=== PATIENT | male | born 1995 | race Caucasian/White ===

== ENCOUNTER → 2016-12-04 | Outpatient (CLI) | payer BC, OTHER ==
--- NOTE | 2016-12-04 16:04 | DIAGNOSTIC IMAGING REPORT ---
RENAL ULTRASOUND CLINICAL HISTORY: Nephrolithiasis. COMPARISON STUDY: KUB November 30, 2015. TECHNIQUE: Sonography of the kidneys and the urinary bladder was performed. FINDINGS: The right kidney measures 9.9 x 4.2 x 4.6 cm and the left measures 11 x 6.2 x 6 cm. There is no hydronephrosis. No renal calculi or masses are identified by sonography. There is apparent debris within the bladder. Both ureteral jets were identified. IMPRESSION: 1. Unremarkable sonographic appearance of the kidneys. No hydronephrosis. No calculi identified by sonography. 2. Possible debris within the bladder. Electronically signed by: Marcelo Spencer M.D. 12/04/2016 4:03 PM Dictated Date/Time: 12/04/2016 3:59 PM
--- NOTE | 2016-12-04 16:45 | DIAGNOSTIC IMAGING REPORT ---
KUB CLINICAL HISTORY: Nephrolithiasis. FINDINGS: 2 AP supine abdominal radiographs are compared to study dated 11/30/2015 and correlated with abdominal CT dated 06/09/2015. There is a nonobstructed abdominal bowel gas pattern. There is no clear radiographic evidence of nephrolithiasis. Pelvic basin calcifications are similar to previous and favor phleboliths. The bony structures appear intact. IMPRESSION: There is no clear radiographic evidence of nephrolithiasis. Electronically signed by: Michael Gibson M.D. 12/04/2016 4:44 PM Dictated Date/Time: 12/04/2016 4:42 PM
== END | disposition home or self-care (01) ==
LOC: C.ULTR 15:32
PROVIDERS: ATTEND Urology
DX: N20.0 Calculus of kidney (principal)

== ENCOUNTER 2017-07-08 22:39 | Inpatient (IN) | payer OTHER ==
[~2017-07-08] VITALS: Ht 177.8 cm; Wt 62.1 kg
[2017-07-08] MEDS ORDERED: ONDANSETRON INJ 2 MG/ML 2 ML VIAL IV STA (23:12)
[2017-07-08] MEDS ORDERED: LIDOCAINE HCL 2% VISC SOLN 20 ML UDC PO STA (23:12)
[2017-07-08] MEDS ORDERED: SODIUM CHLORIDE 0.9% 1000ML 1,000 ML IV STA (23:12)
[2017-07-08] MEDS ORDERED: ALUMINUM/MAGNESIUM SUSP 30 ML UDC PO STA (23:12)
[2017-07-08] MEDS ORDERED: ONDANSETRON HOME PACK 4MG OD TAB PO ONE (23:15)
[2017-07-08 23:28] LABS: BASO % 0.6 %; BASO ABS # 0.04 K/uL (0-0.2); EOS % 0.3 %; EOS ABS # 0.02 K/uL (0-0.5); HEMATOCRIT 49.2 % (42-52); HEMOGLOBIN 18.4 g/dL (14.0-18.0); IG# 0.02 K/uL (0.00-0.02); LYMPH % 24.5 %; LYMPH ABS # 1.67 K/uL (1.2-3.4); MEAN CORPUSCULAR HGB CONC 37.4 g/dl (32-36); MEAN PLATELET VOLUME 9.1 fL (7.4-10.4); MONO % 10.8 %; MONO ABS # 0.74 K/uL (0.11-0.59); NEUT % 63.5 %; NEUT ABS # 4.34 K/uL (1.4-6.5); PLATELET COUNT 251 K/uL (130-400); RED CELL DISTRIBUTION WIDTH CV 12.9 % (11.5-14.5); RED CELL DISTRIBUTION WIDTH SD 38.7 fL (36.4-46.3); WHITE BLOOD COUNT 6.83 K/uL (4.8-10.8)
[2017-07-08 23:51] LABS: ALBUMIN 4.8 gm/dl (3.4-5.0); CALCIUM 9.2 mg/dl (8.5-10.1); CREATININE 1.43 mg/dl (0.60-1.40); POTASSIUM 3.8 mmol/L (3.5-5.1)
[2017-07-08 23:53] LABS: TOTAL PROTEIN 9.2 gm/dl (6.4-8.2)
[2017-07-08] MEDS ORDERED: ONDA4TAB46 PO (23:55)
[2017-07-08] MEDS ORDERED: MULT-506 PO (23:56)
[2017-07-09] VITALS (29 sets, daily range): BP systolic 109–122; BP diastolic 57–78; PULSE 63–84; TEMP 36.8–37.2; O2SAT 96–100; BMI 19.4; BMI 20.1
[2017-07-09] MEDS ORDERED: INSULIN IV INFUSION PROTOCOL STA ×2 (00:11→01:41)
[2017-07-09] MEDS ORDERED: DKA GOAL RANGE 150-250 mg/dl 1 EA ONE ×2 (00:15→01:45)
[2017-07-09] MEDS ORDERED: MODERATE STRESS LEVEL ONE (00:15)
[2017-07-09 00:29] LABS: PHOSPHORUS 2.8 mg/dl (2.5-4.9)
[2017-07-09] MEDS ORDERED: INSULIN REGULAR 250 UNITS in SODIUM CHLORIDE 0.9% 250ML 250 ML IV SCH (00:45)
[2017-07-09] MEDS ORDERED: NovoLIN R BOLUS FROM BAG IV ONE (00:45)
[2017-07-09] MEDS ORDERED: SODIUM CHLORIDE 0.9% 1000ML 1,000 ML IV STA ×2 (00:59)
[2017-07-09] MEDS ORDERED: PENDING NSS+20mEq KCL IVF SCH (01:45)
[2017-07-09] MEDS ORDERED: SEVERE STRESS LEVEL ONE (01:45)
[2017-07-09] MEDS ORDERED: MAGNESIUM HYDROXIDE SUSP 30 ML UDC PO PRN (02:15)
[2017-07-09] MEDS ORDERED: ONDANSETRON INJ 2 MG/ML 2 ML VIAL IV PRN (02:15)
[2017-07-09] MEDS ORDERED: ALUMINUM/MAGNESIUM/SIMETH (MAALOX MAX) 30 ML UDC PO PRN (02:15)
[2017-07-09] MEDS ORDERED: ICU PROTOCOL FOR HYPERGLYCEMIA PRN (02:15)
--- NOTE | 2017-07-09 02:24 | History and Physical ---
History & Physical Date & Time of Service: Jul 09, 2017 at 02:12 Chief Complaint: Vomiting, Nausea, Unable To Eat, Dry Mouth Primary Care Physician: [facility] History of Present Illness Source: patient 22 y/o M who denies a significant medical history. He presents with nausea, vomiting and abdominal pain x 2 days. The pt states that he has had a dry mouth , polyuria and polydipsia for over one month. He denies a fever, diarrhea, dysuria or rigors. Initial labs are consistent with new onset DM and DKA. Past Medical/Surgical History Medical Problems: (1) DKA (diabetic ketoacidoses) Family History No history of DM in immediate family - one cousin with DM diagnosed at age 21 Social History Does not smoke - social drinking - engineering student at [employer] Smoking Status: Never Smoker Allergies Coded Allergies: No Known Allergies (Unverified , 07/08/17) Home Medications Scheduled Multivitamin (Multivitamin), 1 TAB PO DAILY Scheduled PRN Ondansetron Hcl (Zofran), 4 MG PO DIRECTED PRN for Nausea Review of Systems Constitutional: No fever, No chills, No sweats Eyes: No worsening of vision ENT: + problem reported (Dry mouth), No hearing loss, No unusual epistaxis, No nasal symptoms Respiratory: No cough, No sputum, No wheezing Cardiovascular: No chest pain, No orthopnea, No PND Abdomen: + pain, + nausea, + vomiting Musculoskeletal: No joint pain Genitourinary - Male: + urinary frequency, No hematuria, No dysuria Neurologic: No memory loss, No paralysis, No weakness Psychiatric: No depression symptoms Endocrine: + excessive thirst, No fatigue Hematologic / Lymphatic: No abnormal bleeding/bruising Integumentary: No rash Allergic / Immunologic: No environmental allergies Physical Exam Vital Signs Date Time Temp Pulse Resp B/P (MAP) Pulse Ox O2 Delivery O2 Flow Rate FiO2 07/09/17 01:39 76 16 125/73 100 Room Air 07/09/17 00:24 82 07/09/17 00:08 85 18 132/75 99 Room Air 07/08/17 22:52 36.4 116 20 126/92 99 Room Air General Appearance: WD/WN, no apparent distress, + thin Head: normocephalic ENT: normal ENT inspection, pharynx normal Neck: supple, no JVD Respiratory/Chest: chest non-tender, lungs clear Cardiovascular: regular rate, rhythm, no edema, no gallop Abdomen/GI: normal bowel sounds, non tender, soft Back: normal inspection, no CVA tenderness Extremities/Musculoskelatal: normal inspection, no calf tenderness, normal capillary refill Neurologic/Psych: auto tech II-XII nml as tested, no motor/sensory deficits, alert, oriented x 3 Skin: normal color Diagnostics Laboratory Results Results Past 24 Hours Test 07/08/17 23:15 07/09/17 00:10 07/09/17 00:25 07/09/17 00:47 Range/Units White Blood Count 6.83 4.8-10.8 K/uL Red Blood Count 5.93 4.7-6.1 M/uL Hemoglobin 18.4 14.0-18.0 g/dL Hematocrit 49.2 42-52 % Mean Corpuscular Volume 83.0 80-100 fL Mean Corpuscular Hemoglobin 31.0 25-34 pg Mean Corpuscular Hemoglobin Concent 37.4 32-36 g/dl Platelet Count 251 130-400 K/uL Mean Platelet Volume 9.1 7.4-10.4 fL Neutrophils (%) (Auto) 63.5 % Lymphocytes (%) (Auto) 24.5 % Monocytes (%) (Auto) 10.8 % Eosinophils (%) (Auto) 0.3 % Basophils (%) (Auto) 0.6 % Neutrophils # (Auto) 4.34 1.4-6.5 K/uL Lymphocytes # (Auto) 1.67 1.2-3.4 K/uL Monocytes # (Auto) 0.74 0.11-0.59 K/uL Eosinophils # (Auto) 0.02 0-0.5 K/uL Basophils # (Auto) 0.04 0-0.2 K/uL RDW Standard Deviation 38.7 36.4-46.3 fL RDW Coefficient of Variation 12.9 11.5-14.5 % Immature Granulocyte % (Auto) 0.3 % Immature Granulocyte # (Auto) 0.02 0.00-0.02 K/uL Sodium Level 131 136-145 mmol/L Potassium Level 3.8 3.5-5.1 mmol/L Chloride Level 101 98-107 mmol/L Carbon Dioxide Level 10 21-32 mmol/L Anion Gap 20.0 3-11 mmol/L Blood Urea Nitrogen 12 7-18 mg/dl Creatinine 1.43 0.60-1.40 mg/dl Est Creatinine Clear Calc Drug Dose 70.0 ml/min Estimated GFR () 80.6 Estimated GFR (Non- 69.5 BUN/Creatinine Ratio 8.7 10-20 Random Glucose 331 70-99 mg/dl Calcium Level 9.2 8.5-10.1 mg/dl Phosphorus Level 2.8 2.5-4.9 mg/dl Magnesium Level 2.3 1.8-2.4 mg/dl Total Bilirubin 0.9 0.2-1 mg/dl Direct Bilirubin 0.2 0-0.2 mg/dl Aspartate Amino Transf (AST/SGOT) 14 15-37 U/L Alanine Aminotransferase (ALT/SGPT) 24 12-78 U/L Alkaline Phosphatase 108 45-117 U/L Total Protein 9.2 6.4-8.2 gm/dl Albumin 4.8 3.4-5.0 gm/dl Lipase 62 73-393 U/L Beta-Hydroxybutyric Acid 97.58 0.2-2.81 mg/dL Venous Blood pH 7.16 7.36-7.41 Venous Blood Partial Pressure CO2 27 38.0-50.0 mmHg Venous Blood Partial Pressure O2 66 mmHg Venous Blood HCO3 9 mmol/L Venous Blood Oxygen Saturation 90.7 % Venous Blood Base Excess -17.8 mEq/L Bedside Glucose 316 70-99 mg/dl Bedside Lactic Acid Venous 1.22 0.90-1.70 mmol/L Test 07/09/17 01:58 Range/Units Bedside Glucose 246 70-99 mg/dl Impression Assessment and Plan 22 y/o M who denies a significant medical history. He presents with nausea, vomiting and abdominal pain x 2 days. The pt states that he has had a dry mouth , polyuria and polydipsia for over one month. He reports weight loss of 12 pounds. He denies a fever, diarrhea, dysuria or rigors. Initial labs are consistent with new onset DM and DKA. The pt is assigned to the ICU on an insulin drip which will be maintained until his gap closes. Aggressive IVF provided. Electrolytes will be trended and repleted accordingly. He will require diabetic teaching and a home insulin regimen prior to DC. Full code - Heparin prophylaxis Total time for this admit including review of labs, meds, imaging, records - discussion with pt, family and ER attending - including critical care time 35 min Resuscitation Status VTE Prophylaxis Will order VTE Prophylaxis: Yes
--- NOTE | 2017-07-09 02:30 | EMERGENCY ROOM VISIT NOTE ---
History First contact with patient: 23:08 Chief Complaint: VOMITING Stated Complaint: VOMITING, NAUSEA, UNABLE TO EAT, DRY MOUTH History of Present Illness The patient is a 22 year old male who presents to the Emergency Room with complaints of nausea, vomiting, for the past few days. Patient states for the past few weeks he has had polydipsia and polyuria. Patient denies chest pain, dyspnea, fever, chills, diarrhea, back pain, lower abdominal pain, dysuria, cold symptoms. No sick contacts. Review of Systems An 10 system review of systems was completed with positives and pertinent negatives listed in the HPI. Past Medical/Surgical History Asthma, Acne Social History Smoking Status: Never Smoker Smokeless Tobacco Use: No Alcohol Use: none Drug Use: none Marital Status: single Occupation Status: [employer] student Current/Historical Medications Scheduled Multivitamin (Multivitamin), 1 TAB PO DAILY Scheduled PRN Ondansetron Hcl (Zofran), 4 MG PO DIRECTED PRN for Nausea Physical Exam Vital Signs Date Time Temp Pulse Resp B/P (MAP) Pulse Ox O2 Delivery O2 Flow Rate FiO2 07/09/17 01:39 76 16 125/73 100 Room Air 07/09/17 00:24 82 07/09/17 00:08 85 18 132/75 99 Room Air 07/08/17 22:52 36.4 116 20 126/92 99 Room Air Physical Exam VITALS: Vitals are noted on the nurse's note and reviewed by myself. Vital signs stable. GENERAL: Pleasant male mildly dehydrated., in no acute distress, nondiaphoretic , well-developed well-nourished. SKIN: The skin was without rashes, erythema, edema, or bruising. There is no tenting of the skin. Capillary reflex less than 2 seconds. HEAD: Normocephalic atraumatic. EARS: External auditory canals clear, tympanic membranes pearly briseno without erythema or effusion bilaterally. EYES: Pupils equal round and reactive to light and accommodation. Conjunctivae without injection, sclerae without icterus. Extraocular movements intact. NOSE: Patent, turbinates without inflammation or discharge. No sinus tenderness. MOUTH: Mucous membranes mildly dry. pharynx without erythema or exudate. Uvula midline. Airway patent. Tongue does not deviate. NECK: Supple without nuchal rigidity. No lymphadenopathy. No thyromegaly. Cervical spine is nontender. No JVD. HEART: Regular rate and rhythm without murmurs gallops or rubs. LUNGS: Clear to auscultation bilaterally without wheezes, rales or rhonchi. No retractions or accessory muscle use. ABDOMEN: Positive bowel sounds x 4. Normal tympanic percussion. Soft, nontender, without masses or organomegaly. Irving sign negative. No guarding or rebound tenderness. No CVA tenderness MUSCULOSKELETAL: No muscle atrophy, erythema, or edema noted. NEURO: Patient was alert and oriented to person place and time. Normal sensation to light and sharp touch. No focal neurological deficits. Medical Decision & Procedures Laboratory Results 07/08/17 23:15 Red Blood Count 5.93, Mean Corpuscular Volume 83.0, Mean Corpuscular Hemoglobin 31.0, Mean Corpuscular Hemoglobin Concent 37.4, Mean Platelet Volume 9.1, Neutrophils (%) (Auto) 63.5, Lymphocytes (%) (Auto) 24.5, Monocytes (%) (Auto) 10.8, Eosinophils (%) (Auto) 0.3, Basophils (%) (Auto) 0.6, Neutrophils # (Auto ) 4.34, Lymphocytes # (Auto) 1.67, Monocytes # (Auto) 0.74, Eosinophils # (Auto ) 0.02, Basophils # (Auto) 0.04 07/08/17 23:15 Test 07/08/17 23:15 07/09/17 00:10 07/09/17 00:25 07/09/17 00:47 White Blood Count 6.83 K/uL (4.8-10.8) Red Blood Count 5.93 M/uL (4.7-6.1) Hemoglobin 18.4 g/dL (14.0-18.0) Hematocrit 49.2 % (42-52) Mean Corpuscular Volume 83.0 fL (80-100) Mean Corpuscular Hemoglobin 31.0 pg (25-34) Mean Corpuscular Hemoglobin Concent 37.4 g/dl (32-36) Platelet Count 251 K/uL (130-400) Mean Platelet Volume 9.1 fL (7.4-10.4) Neutrophils (%) (Auto) 63.5 % Lymphocytes (%) (Auto) 24.5 % Monocytes (%) (Auto) 10.8 % Eosinophils (%) (Auto) 0.3 % Basophils (%) (Auto) 0.6 % Neutrophils # (Auto) 4.34 K/uL (1.4-6.5) Lymphocytes # (Auto) 1.67 K/uL (1.2-3.4) Monocytes # (Auto) 0.74 K/uL (0.11-0.59) Eosinophils # (Auto) 0.02 K/uL (0-0.5) Basophils # (Auto) 0.04 K/uL (0-0.2) RDW Standard Deviation 38.7 fL (36.4-46.3) RDW Coefficient of Variation 12.9 % (11.5-14.5) Immature Granulocyte % (Auto) 0.3 % Immature Granulocyte # (Auto) 0.02 K/uL (0.00-0.02) Anion Gap 20.0 mmol/L (3-11) Est Creatinine Clear Calc Drug Dose 70.0 ml/min Estimated GFR () 80.6 Estimated GFR (Non- 69.5 BUN/Creatinine Ratio 8.7 (10-20) Calcium Level 9.2 mg/dl (8.5-10.1) Phosphorus Level 2.8 mg/dl (2.5-4.9) Magnesium Level 2.3 mg/dl (1.8-2.4) Total Bilirubin 0.9 mg/dl (0.2-1) Direct Bilirubin 0.2 mg/dl (0-0.2) Aspartate Amino Transf (AST/SGOT) 14 U/L (15-37) Alanine Aminotransferase (ALT/SGPT) 24 U/L (12-78) Alkaline Phosphatase 108 U/L (45-117) Total Protein 9.2 gm/dl (6.4-8.2) Albumin 4.8 gm/dl (3.4-5.0) Lipase 62 U/L (73-393) Beta-Hydroxybutyric Acid 97.58 mg/dL (0.2-2.81) Venous Blood pH 7.16 (7.36-7.41) Venous Blood Partial Pressure CO2 27 mmHg (38.0-50.0) Venous Blood Partial Pressure O2 66 mmHg Venous Blood HCO3 9 mmol/L Venous Blood Oxygen Saturation 90.7 % Venous Blood Base Excess -17.8 mEq/L Bedside Glucose 316 mg/dl (70-99) Bedside Lactic Acid Venous 1.22 mmol/L (0.90-1.70) Medications Administered Medications (Trade) Dose Ordered Sig/Renetta Route Start Time Stop Time Status Last Admin Dose Admin Lidocaine HCl (Viscous Lidocaine 2% Soln) 10 ml NOW STAT PO 07/08/17 23:12 07/08/17 23:14 DC 07/08/17 23:22 10 ML Al Hydroxide/Mg Hydroxide (Maalox Susp) 30 ml NOW STAT PO 07/08/17 23:12 07/08/17 23:15 DC 07/08/17 23:22 30 ML Ondansetron HCl (Zofran Inj) 4 mg NOW STAT IV 07/08/17 23:12 07/08/17 23:15 DC 07/08/17 23:23 4 MG Ondansetron HCl (ZOFRAN ODT 4MG Home Pack) 1 homepack UD ONCE PO 07/08/17 23:15 07/08/17 23:16 DC 07/08/17 23:22 1 HOMEPACK Sodium Chloride 1,000 ml @ 999 mls/hr Q1H1M STAT IV 07/08/17 23:12 07/09/17 00:12 DC 07/08/17 23:23 999 MLS/HR Sodium Chloride 1,000 ml @ 999 mls/hr Q1H1M STAT IV 07/09/17 00:00 07/09/17 01:00 DC 07/09/17 00:08 999 MLS/HR Insulin Human Regular (Insulin IV Infusion Protocol) 1 ea NOW STAT N/A 07/09/17 00:11 07/09/17 00:18 DC 07/09/17 01:13 1 EA Miscellaneous (Insulin Protocol Dka Goal Range) 1 ea ONE ONCE N/A 07/09/17 00:15 07/09/17 00:18 DC 07/09/17 01:12 1 EA Miscellaneous (Insulin Protocol Moderate Stress Level) 1 ea ONE ONCE N/A 07/09/17 00:15 07/09/17 00:18 DC 07/09/17 01:12 1 EA Insulin Human Regular (NovoLIN R BOLUS FROM BAG) 1.5 unit ONE ONCE IV 07/09/17 00:45 07/09/17 00:46 DC 07/09/17 00:45 1.5 UNIT Insulin Human Regular 250 units/ Sodium Chloride 252.5 ml @ 0 mls/hr Q24H IV 07/09/17 00:45 08/08/17 00:44 07/09/17 00:54 1.5 MLS/HR Sodium Chloride 1,000 ml @ 125 mls/hr Q8H STAT IV 07/09/17 00:59 07/09/17 08:58 07/09/17 01:16 125 MLS/HR ED Course Prior records/ancillary studies reviewed and summarized above. Nursing notes reviewed. The patient's history was concerning for nausea vomiting. Differential diagnosis: Etiologies such as metabolic, infection, hypo/hyperglycemia, electrolyte abnormalities, cardiac sources, intracerebral event, toxicologic, neurologic, as well as others were entertained. Physical examination: As above. ER treatment provided: IV Lock IV fluids, insulin with moderate stress per protocol On reassessment the patient felt better. Diagnostics interpretation by me: ECG: Normal sinus, normal intervals, no acute ST-T wave changes. Impression normal sinus rhythm interpreted by myself The labs revealed hyperglycemia. Anion gap. PH 7.1. Consultation: A consultation was placed with the hospitalist, Dr Murray. The case was discussed and diagnostics were reviewed. The patient was evaluated in the ER for further treatment. Exam and history seem consistent with newly diagnosed diabetes who is currently in DKA. Patient was given 2 L of fluids and insulin with moderate stress protocol was ordered. Medicine and ICU were consulted. Patient was reassessed multiple times. He remained stable. He was finally able to tolerate fluids. Negative lactic acid. Patient and family agree to treatment plan of admission. By the evaluation outlined above emergent etiologies such as infection, cardiac sources, intracerebral event, toxologic, neurologic, as well as others were deemed relatively unlikely. The pt informed about the findings as listed above. All questions were answered and pleased with the treatment. Case reviewed with my attending The chart was completed utilizing [employer] Speech voice recognition software. Grammatical errors, random word insertions, pronoun errors, and incomplete sentences are an occassional consequence of this system due to software limitations, ambient noise, and hardware issues. Any formal questions or concerns about the content, text, or information contained within the body of this dictation should be directly addressed to the physician executive staff assistant for clarification. Medical Decision As above Medication Reconcilliation Current Medication List: was personally reviewed by me Blood Pressure Screening Patient's blood pressure: Normal blood pressure Impression Primary Impression: DKA (diabetic ketoacidoses) Additional Impressions: Newly diagnosed diabetes Vomiting Dehydration Critical Care I have personally spent greater than 30 minutes of critical care time in the direct management of this patient. This includes bedside care, interpretation of diagnostic studies, and testing, discussion with consultants, patient, and family members, and other required patient management activities. This 30 minutes is in excess of all separately billable procedures. Departure Information Dispostion Being Evaluated By Hospitalist Condition [facility] (PCP) Patient Instructions My [facility] Problem Qualifiers Primary Impression: DKA (diabetic ketoacidoses) Diabetes mellitus type: other specified (including ANDRADE) Diabetes mellitus complication detail: without coma Qualified Codes: E13.10 - Other specified diabetes mellitus with ketoacidosis without coma
--- NOTE | 2017-07-09 03:12 | EMERGENCY ROOM VISIT NOTE ---
ED Visit Note First contact with patient: 23:08 I have personally evaluated and examined this patient. I agree with assessment and plan of Liz Bowling PA-C. 22 yr old male with several months weight loss, fatigue and last few weeks excessive thirst, dry mouth and urinating every 2 hours. Notes nausea/vomiting beginning over last day or so. He is dehydrated significantly on exam but stable appearing. BSG elevated with acidosis and low bicarb consistent with DKA. Fluids and insulin gtt started. Reviewed case with hospitalist and family. Patient stable without complaint on repeat exams.
[2017-07-09] MEDS ORDERED: GLUCOSE 10 TABS/TUBE PO PRN (03:45)
[2017-07-09] MEDS ORDERED: GLUCAGON FOR INJ 1 MG VIAL SQ PRN (03:45)
[2017-07-09] MEDS ORDERED: GLUCOSE 40% GEL 15 GM TUBE PO PRN (03:45)
[2017-07-09] MEDS ORDERED: DEXTROSE 50% 50 ML SYR IV PRN (03:45)
--- NOTE | 2017-07-09 03:56 | Critical Care Consultation ---
Critical Care Consultation Date of Consultation: Jul 09, 2017. Attending Physician: Stanley Murray M.D. 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 Does also admit to several months weight loss, fatigue and last few weeks excessive thirst, dry mouth and urinating every 2 hours. Notes nausea/vomiting beginning over last day or so. Since approx Friday he was experiencing very dry mouth which caused him to see provider at [facility]. By Friday he was also having nausea with vomiting and was seen again and given a prescription for Zofran. Pt continued to vomit and not hold down fluid/food on Friday. He stayed home from class on Friday sipping on GingerAle and Gatorade. Pt came to ED today as he continued to not improve. Here he was found to have labs consistent with DKA. Pt has never been diagnosed with DM previously. He felt his symptoms were from stress of school. VB.. BSG 331, Beta-hydroxybutyric Acid 97.58, Cr 1.43 Correct Sodium 137. ED course included initiation of insulin infusion, 2L bolus of NSS, and Zofran. Symptoms much improved. Pt transferred to ICU. Upon my exam, pt is pleasant without complaint. Mother and Uncle at bedside. Questions answered. Social History Smoking Status: Never Smoker Smokeless Tobacco Use: No Drug Use: none Marital Status: single Occupation Status: [employer] student Allergies Coded Allergies: No Known Allergies (Unverified , 07/08/17) Home Medications Scheduled Multivitamin (Multivitamin), 1 TAB PO DAILY Scheduled PRN Ondansetron Hcl (Zofran), 4 MG PO DIRECTED PRN for Nausea Current Inpatient Medications Current Inpatient Medications Medications (Trade) Dose Ordered Sig/Renetta Route Start Time Stop Time Status Last Admin Dose Admin Insulin Human Regular 250 units/ Sodium Chloride 252.5 ml @ 0 mls/hr Q24H IV 07/09/17 00:45 08/08/17 00:44 07/09/17 00:54 1.5 MLS/HR Sodium Chloride 1,000 ml @ 125 mls/hr Q8H STAT IV 07/09/17 00:59 07/09/17 08:58 07/09/17 01:16 125 MLS/HR Insulin Aspart (novoLOG ASPART) SLIDING SCALE [facility] 07/09/17 08:00 08/08/17 08:59 UNV Miscellaneous Information (PENDING NSS+20mEq KCL IVF) 1 ea Q2H N/A 07/09/17 01:45 08/08/17 01:44 UNV Miscellaneous (Insulin Protocol Dka Goal Range) 1 ea ONE ONCE N/A 07/09/17 01:45 07/09/17 01:46 UNV Insulin Human Regular (Insulin IV Infusion Protocol) 1 ea NOW STAT N/A 07/09/17 01:41 07/09/17 01:42 UNV Miscellaneous (Insulin Protocol Severe Stress) 1 ea ONE ONCE N/A 07/09/17 01:45 07/09/17 01:46 UNV Potassium Chloride/Sodium Chloride 1,000 ml @ 200 mls/hr Q5H IV 07/09/17 02:15 08/08/17 02:14 UNV Heparin Sodium (Porcine) (Heparin Sq 5000 Unit/0.5ml) 5,000 unit Q12H SQ 07/09/17 02:15 08/08/17 02:14 UNV Al Hydrox/Mg Hydrox/Simethicone (Maalox Max Susp) 15 ml Q4H PRN PO 07/09/17 02:15 08/08/17 02:14 UNV Magnesium Hydroxide (Milk Of Magnesia Susp) 30 ml Q12H PRN PO 07/09/17 02:15 08/08/17 02:14 UNV Ondansetron HCl (Zofran Inj) 4 mg Q6H PRN IV 07/09/17 02:15 08/08/17 02:14 UNV Miscellaneous Information (Icu Protocol For Hyperglycemia) 1 ea PRN PRN N/A 07/09/17 02:15 07/11/17 02:14 UNV Review of Systems 12 systems reviewed and negative other than previously mentioned in the HPI. Physical Exam Date Time Temp Pulse Resp B/P (MAP) Pulse Ox O2 Delivery O2 Flow Rate FiO2 07/09/17 03:19 77 18 126/70 99 07/09/17 01:39 76 16 125/73 100 Room Air 07/09/17 00:24 82 07/09/17 00:08 85 18 132/75 99 Room Air 07/08/17 22:52 36.4 116 20 126/92 99 Room Air Vital Signs - as noted Laboratory Data - as noted Physical Exam: General - NAD. slightly pale looking Eyes - PERRL, EOMI No icterus, gaze conjugate ENT - Mucosa extremely dry, no lesions or candidiasis Neck - Supple, trachea midline, no masses or lymphadenopathy, no JVD or bruits Lungs - No paradoxical chest wall movement, clear to auscultation bilaterally, no wheezes, rales, or rhonchi Heart - Reg rate and rhythm, No murmur, rubs, clicks, or gallops appreciated Abdomen - normoactive BS present, no bruits noted, tympanic to percussion, soft , nontender, nondistended, no organomegaly Extremities - No edema, pedal pulses intact Neuro - A&O x 4 Strength extremities equal and appropriate bilaterally Reflexes: Normal and equal CN:PERRL, EOMI, no facial asymmetry, uvula/tongue midline Laboratory Results Last 24 Hours Test 07/08/17 23:15 07/09/17 00:10 07/09/17 00:25 07/09/17 00:47 White Blood Count 6.83 K/uL Red Blood Count 5.93 M/uL Hemoglobin 18.4 g/dL Hematocrit 49.2 % Mean Corpuscular Volume 83.0 fL Mean Corpuscular Hemoglobin 31.0 pg Mean Corpuscular Hemoglobin Concent 37.4 g/dl Platelet Count 251 K/uL Mean Platelet Volume 9.1 fL Neutrophils (%) (Auto) 63.5 % Lymphocytes (%) (Auto) 24.5 % Monocytes (%) (Auto) 10.8 % Eosinophils (%) (Auto) 0.3 % Basophils (%) (Auto) 0.6 % Neutrophils # (Auto) 4.34 K/uL Lymphocytes # (Auto) 1.67 K/uL Monocytes # (Auto) 0.74 K/uL Eosinophils # (Auto) 0.02 K/uL Basophils # (Auto) 0.04 K/uL RDW Standard Deviation 38.7 fL RDW Coefficient of Variation 12.9 % Immature Granulocyte % (Auto) 0.3 % Immature Granulocyte # (Auto) 0.02 K/uL Sodium Level 131 mmol/L Potassium Level 3.8 mmol/L Chloride Level 101 mmol/L Carbon Dioxide Level 10 mmol/L Anion Gap 20.0 mmol/L Blood Urea Nitrogen 12 mg/dl Creatinine 1.43 mg/dl Est Creatinine Clear Calc Drug Dose 70.0 ml/min Estimated GFR () 80.6 Estimated GFR (Non- 69.5 BUN/Creatinine Ratio 8.7 Random Glucose 331 mg/dl Calcium Level 9.2 mg/dl Phosphorus Level 2.8 mg/dl Magnesium Level 2.3 mg/dl Total Bilirubin 0.9 mg/dl Direct Bilirubin 0.2 mg/dl Aspartate Amino Transf (AST/SGOT) 14 U/L Alanine Aminotransferase (ALT/SGPT) 24 U/L Alkaline Phosphatase 108 U/L Total Protein 9.2 gm/dl Albumin 4.8 gm/dl Lipase 62 U/L Beta-Hydroxybutyric Acid 97.58 mg/dL Venous Blood pH 7.16 Venous Blood Partial Pressure CO2 27 mmHg Venous Blood Partial Pressure O2 66 mmHg Venous Blood HCO3 9 mmol/L Venous Blood Oxygen Saturation 90.7 % Venous Blood Base Excess -17.8 mEq/L Bedside Glucose 316 mg/dl Bedside Lactic Acid Venous 1.22 mmol/L Test 07/09/17 01:58 07/09/17 02:56 Bedside Glucose 246 mg/dl 228 mg/dl Diagnostic Results No Imaging this admission Assessment & Plan (1) Dehydration (2) Vomiting (3) Newly diagnosed diabetes (4) DKA (diabetic ketoacidoses) Reason Critically Ill: Patient is an 22-year-old male who is transferred to the ICU for nausea, vomiting, dehydration, MARINA and DKA. PLAN: Endocrine: * Newly Diagnosed DM 2/2 DKA diagnosis * BSG 331, Correct Na WNL, BHA 97.58 * Insulin infusion * NSS + 20meq K @ 200 until BSG in range * Trend PRP, VBG pH, Mg, Phos q 4h. Insulin q1hr per protocol * DKA Protocol in place * Consult DM educator Fluids/Renal: * Presumed MARINA (unknown Baseline Cr) Currently 1.43 * Secondary to Pre-renal Dehydration * Continue fluids per DKA protocol * No jolly at this time, However monitor I&Os * Trending Electrolytes and PRP q 4h currently * Last K: 3.8 Neuro: * Trend Pain Scale Resp: * Supplemental oxygen as required * Monitor for fluid overload CV: * No Cardiac Health Hx. * Monitor on telemetry ID: * No indication for Abx * No Leukocytosis * Afebrile GI/Nutrition: * Lipase within normal limits * ALT mildly low * Ice Chips and Meds until Anion Gap Closes * No indication for Prophylaxis Heme: * H&H WNL * Daily H&H * DVT Prophylaxis: Heparin 5,000u/day CCT: 35 Minutes; This time is exclusive of all separately billable procedures. Thank you for involving us in the care of this patient. Please refer to Dr. Francisco Mckeon's addendum for further recommendations. I have personally evaluated and examined this patient. I agree with assessment and plan of Kristina Rust PA-C. Patient was discussed on multidisciplinary rounds as well as my individual evaluation and examination. Patient's anion gap almost closed, will add basal insulin and transition off insulin infusion Acute kidney injury resolved Spent majority of evaluation educating patient on diabetes and prognosis I have personally spent 45 minutes of critical care time in the direct management of this patient. This is a life/limb threatening event. This includes time spent evaluating patient, direct bedside care, chart review, placing orders, interpretation of diagnostic studies, discussion with consultants, patient, and/or family members regarding treatment decisions, as well as other required patient management activities. This time is exclusive of all separately billable procedures, and teaching time and separate from and in addition to any other critical care service time. Problem Qualifiers (1) DKA (diabetic ketoacidoses): Diabetes mellitus type: other specified (including ANDRADE) Diabetes mellitus complication detail: without coma Qualified Codes: E13.10 - Other specified diabetes mellitus with ketoacidosis without coma
[2017-07-09] MEDS ORDERED: NSS + 20MEQ KCL 1000ML 1,000 ML IV SCH (04:00)
[2017-07-09 04:31] LABS: BASO % 0.4 %; BASO ABS # 0.03 K/uL (0-0.2); EOS % 0.1 %; EOS ABS # 0.01 K/uL (0-0.5); HEMATOCRIT 42.4 % (42-52); HEMOGLOBIN 15.3 g/dL (14.0-18.0); IG# 0.01 K/uL (0.00-0.02); LYMPH % 27.8 %; LYMPH ABS # 2.15 K/uL (1.2-3.4); MEAN CELL VOLUME 83.5 fL (80-100); MEAN CORPUSCULAR HEMOGLOBIN 30.1 pg (25-34); MEAN CORPUSCULAR HGB CONC 36.1 g/dl (32-36); MEAN PLATELET VOLUME 9.2 fL (7.4-10.4); MONO % 11.6 %; NEUT ABS # 4.63 K/uL (1.4-6.5); PLATELET COUNT 212 K/uL (130-400); RED CELL DISTRIBUTION WIDTH CV 12.9 % (11.5-14.5); RED CELL DISTRIBUTION WIDTH SD 38.6 fL (36.4-46.3); WHITE BLOOD COUNT 7.73 K/uL (4.8-10.8)
[2017-07-09 04:37] LABS: CALCIUM 7.9 mg/dl (8.5-10.1); CREATININE 1.09 mg/dl (0.60-1.40); POTASSIUM 3.7 mmol/L (3.5-5.1)
[2017-07-09 05:01] LABS: PHOSPHORUS 1.6 mg/dl (2.5-4.9)
[2017-07-09] MEDS ORDERED: POTASSIUM PHOS 3 MMOL/1 ML INFUSION IV STA (05:24)
[2017-07-09] MEDS ORDERED: POTASSIUM PHOSPHATE INJ 21 MMOL in SODIUM CHLORIDE 0.9% 500ML 500 ML IV ONE (05:45)
[2017-07-09] MEDS: D5W AND 1/2NSS + 20MEQ KCL 1,000 ML IV SCH ×2 (05:54→10:30)
[2017-07-09] MEDS ORDERED: INSULIN ASPART 100 UNITS/ML 3 ML PEN SC SCH (08:00)
[2017-07-09 08:57] LABS: CALCIUM 7.7 mg/dl (8.5-10.1); CREATININE 0.9 mg/dl (0.60-1.40); PHOSPHORUS 2.1 mg/dl (2.5-4.9); POTASSIUM 3.8 mmol/L (3.5-5.1)
[2017-07-09 09:29] LABS: HEMOGLOBIN A1C 11.4 % (4.5-5.6)
[2017-07-09] MEDS: INSULIN ASPART 100 UNITS/ML 3 ML PEN SC SCH ×3 (09:37→21:17)
[2017-07-09] MEDS: HEPARIN SOD 5000 UNIT/0.5 ML CARP SQ SCH ×2 (09:37→21:15)
--- NOTE | 2017-07-09 10:53 | Progress Note ---
Progress Note Date of Service Jul 09, 2017. 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 He was seen by S and thought it may be Sjorgren. He then noticed nausea, and again was seen by S and belived this to be due to stress and perhaps viral. Patient yesterday began vomitng and was brought to ED where he was newly diagnosed with Diabetes. Patient is currently being treated for DKA. Patient is still on insulin and IVF and is in the ICU. Patient continues to have an anion gap. Patient will be downgraded once anion gap has closed. Patient will likely need to f/u with endo as outpatient for testing for his new diagnosed diabetes likely type 1. Patient currently is asymptomatic
[2017-07-09] MEDS ORDERED: [UNRECOGNIZED DRUG - REMARK] STA (12:43)
[2017-07-09] MEDS ORDERED: PHARMACY GLYCEMIC MGMT CONSULT PRN (12:45)
[2017-07-09 13:02] LABS: CALCIUM 7.7 mg/dl (8.5-10.1); CREATININE 0.91 mg/dl (0.60-1.40); POTASSIUM 3.8 mmol/L (3.5-5.1)
[2017-07-09 13:03] LABS: PHOSPHORUS 2.3 mg/dl (2.5-4.9)
[2017-07-09] MEDS ORDERED: INSULIN GLARGINE SOLOSTAR 100 UNITS/ML 3 ML PEN SC ONE (13:15)
--- NOTE | 2017-07-09 14:16 | Pharmacy Progress Note ---
Glycemic Control Intl Consult Date of Service Jul 09, 2017. Scope Glycemic Pharmacist consulted by Michael Rodriguez on 07/09 for glycemic control and to write orders per [facility] inpatient glycemic control protocol Objective Weight (Kilograms): 63.510 Accuchecks BSG (last 24hrs): Test 07/08/17 23:15 07/09/17 00:25 07/09/17 01:58 07/09/17 02:56 Random Glucose 331 mg/dl (70-99) Bedside Glucose 316 mg/dl (70-99) 246 mg/dl (70-99) 228 mg/dl (70-99) Test 07/09/17 04:02 07/09/17 04:06 07/09/17 05:10 07/09/17 06:02 Random Glucose 208 mg/dl (70-99) Bedside Glucose 190 mg/dl (70-99) 173 mg/dl (70-99) 167 mg/dl (70-99) Test 07/09/17 08:07 07/09/17 12:16 Random Glucose 187 mg/dl (70-99) 263 mg/dl (70-99) Laboratory Data (last 24hrs) Test 07/08/17 23:15 07/09/17 04:02 07/09/17 08:07 07/09/17 12:16 Anion Gap 20.0 mmol/L 15.0 mmol/L 14.0 mmol/L 13.0 mmol/L BUN/Creatinine Ratio 8.7 9.8 10.5 9.4 Blood Urea Nitrogen 12 mg/dl 11 mg/dl 9 mg/dl 9 mg/dl Creatinine 1.43 mg/dl 1.09 mg/dl 0.90 mg/dl 0.91 mg/dl Potassium Level 3.8 mmol/L 3.7 mmol/L 3.8 mmol/L 3.8 mmol/L Sodium Level 131 mmol/L 134 mmol/L 135 mmol/L 133 mmol/L White Blood Count 6.83 K/uL 7.73 K/uL Red Blood Count 5.93 M/uL 5.08 M/uL Hemoglobin 18.4 g/dL 15.3 g/dL Hematocrit 49.2 % 42.4 % Mean Corpuscular Volume 83.0 fL 83.5 fL Mean Corpuscular Hemoglobin 31.0 pg 30.1 pg Mean Corpuscular Hemoglobin Concent 37.4 g/dl 36.1 g/dl Platelet Count 251 K/uL 212 K/uL Mean Platelet Volume 9.1 fL 9.2 fL Neutrophils (%) (Auto) 63.5 % 60.0 % Lymphocytes (%) (Auto) 24.5 % 27.8 % Monocytes (%) (Auto) 10.8 % 11.6 % Eosinophils (%) (Auto) 0.3 % 0.1 % Basophils (%) (Auto) 0.6 % 0.4 % Neutrophils # (Auto) 4.34 K/uL 4.63 K/uL Lymphocytes # (Auto) 1.67 K/uL 2.15 K/uL Monocytes # (Auto) 0.74 K/uL 0.90 K/uL Eosinophils # (Auto) 0.02 K/uL 0.01 K/uL Basophils # (Auto) 0.04 K/uL 0.03 K/uL Hemoglobin A1c 11.4 % HbA1c Test 07/09/17 08:07 Hemoglobin A1c 11.4 % (4.5-5.6) H Recent Pertinent Medications Outpatient Anti-diabetic Regimen: * None The patient is currently receiving: * Insulin drip @ 2.0 units/hr Assessment & Plan ASSESSMENT: * 22 yo M admitted to ICU with DKA and new diagnosis of diabetes * Patient has been on an insulin drip since 07/08 @ ~ 0000 * Anion gap, CO2 and pH are trending nicely - anticipate that 1600 labs will demonstrate correction of acidosis enough to transition off drip. OK to start transition off drip now per discussion w Dr. Mckeon * Insulin drip was running at 1.0 units/hr most of the day, but has recently increased 2nd patient consumption of CHO. Will give Lantus at slightly less than total daily dose for 1.0 unit/hr rate (this is ~ 0.3 units/kg which may be more than the patient will require as maintenance dose but OK to give now) * Will stop insulin drip 6 hours after administration of Lantus, or sooner if the drip turns itself off * Will initiate weight based Novolog at slightly looser than weight-based moderate stress dosing PLAN FOR INPATIENT GLYCEMIC CONTROL: * Stop IV insulin @ 1930, or sooner if drip indicates * Basal insulin with LANTUS 20 units SQ x1 @ 1330. Ongoing dose to be determined tomorrow AM based on response tonight/overnight * Correctional Insulin with NOVOLOG per scale ACHS with 2 overnight checks * Goal Range: Low 120 mg/dL - High 150 mg/dL * Correction Factor: 40 mg/dL/unit * Nutritional / Prandial insulin per carb ratio of 1 unit per 13 grams CHO consumed * Please note that the plan above was derived based on current level of insulin resistance and hospital stress. These recommendations are appropriate for inpatient admission only. Plan of care upon discharge will need to be reassessed to avoid potential outpatient hypo/hyperglycemia. Thank you.
[2017-07-09] MEDS ORDERED: INSULIN ASPART 100 UNITS/ML 3 ML PEN SC ONE (16:00)
[2017-07-09 16:54] LABS: CALCIUM 7.9 mg/dl (8.5-10.1); CREATININE 0.91 mg/dl (0.60-1.40); PHOSPHORUS 1.6 mg/dl (2.5-4.9)
[2017-07-09] MEDS ORDERED: POT PHOSPHATE MONOBASIC W/ SOD TAB PO ONE (17:30)
--- NOTE | 2017-07-09 17:58 | Critical Care Progress Note ---
Critical Care Progress Note Date of Service Jul 09, 2017. ICU Day ICU Day Number: [address] Mckeon Subjective Pt is resting in bed, parents at bedside. Discussed new diagnosis of diabetes - - mother of pt states that he has a cousin who presented similarly in his 20s. Otherwise, no other family history of diabetes. As of exam this morning, pt had not yet begun eating a diet yet. Denies any complaints such as blurry vision, headache, chest pain, difficulty breathing, abdominal pain. On insulin drip overnight, K and Phos replaced this morning. Last BSG is 163. A1C is 11.4. Objective GENERAL: Awake, alert, well-appearing, in no distress HENT: Normocephalic, atraumatic. Moist mucus membranes. EYES: Normal conjunctiva. Sclera non-icteric. NECK: Supple. FROM. No JVD. RESPIRATORY: Clear to auscultation. CARDIAC: Regular rate, normal rhythm. Extremities warm and well perfused. Pulses equal. ABDOMEN: Soft, non-distended. No tenderness to palpation. No rebound or guarding. No masses. LOWER EXTREMITIES: Calves are equal size bilaterally and non-tender. No edema. No discoloration. NEURO: No motor deficits noted. SKIN: No rash or jaundice noted. Assessment & Plan (1) Dehydration (2) Vomiting (3) Newly diagnosed diabetes (4) DKA (diabetic ketoacidoses) Reason Critically Ill: 22-year-old male with no significant past medical history who presents with diabetic ketoacidosis, dehydration and vomiting. Neuro - CAM ICU: NEGATIVE Neurologicaly in tact, no concerns at this time. Cardiac - Hemodynamically stable, normal sinus rhythm 60s, BP 119/74 Respiratory - No concerns at this time. 100 on RA. GI - Tolerating ADA diet. No other concerns at this time. RENAL/LYTES - Creatinine 1.43 on admission, now 0.9 with fluids. K 3.8 on admission, trended down to 3.0 this afternoon due to insulin, replaced. Replace lytes as needed. - No concerns at this time. ENDO - Diabetes education given. Begun on insulin drip initially, progressed to sliding scale and ADA diet. Lantus 20 units given at 1300 today. Glycemic consult active. HEME - Stable H&H. Will monitor for any drops in the setting of Heparin gtt ID - No concerns for infection at this point. Monitor fever curve. LINES/IV ACCESS - PIVs intact. DVT PROPHYLAXIS - Heparin 5000 units q12. Thank you for allowing us to be part of this patient's care. Please refer to Dr. Mckeon's documentation for any further recommendations. Resident Physician Supervision Note: Dr. Florencia Romero was resident physician during care of patient. I separately evaluated patient and did history and exam. I discussed the case with the resident and generally agree with the findings and plan. Documented By: Francisco Mckeon DO Data Medications: Current Inpatient Medications Medications (Trade) Dose Ordered Sig/Renetta Route Start Time Stop Time Status Last Admin Dose Admin Insulin Human Regular 250 units/ Sodium Chloride 252.5 ml @ 0 mls/hr Q24H IV 07/09/17 00:45 07/09/17 19:30 07/09/17 00:54 1.5 MLS/HR Heparin Sodium (Porcine) (Heparin Sq 5000 Unit/0.5ml) 5,000 unit Q12H SQ 07/09/17 09:00 08/08/17 08:59 07/09/17 09:37 5,000 UNIT Al Hydrox/Mg Hydrox/Simethicone (Maalox Max Susp) 15 ml Q4H PRN PO 07/09/17 02:15 08/08/17 02:14 Magnesium Hydroxide (Milk Of Magnesia Susp) 30 ml Q12H PRN PO 07/09/17 02:15 08/08/17 02:14 Ondansetron HCl (Zofran Inj) 4 mg Q6H PRN IV 07/09/17 02:15 08/08/17 02:14 Glucose (Glucose 40% Gel) 15-30 GRAMS 15 GRAMS... UD PRN PO 07/09/17 03:45 08/08/17 03:44 Glucose (Glucose Chew Tab) 4-8 Tablets 4 Tabl... UD PRN PO 07/09/17 03:45 08/08/17 03:44 Dextrose (Dextrose 50% 50ML Syringe) 25-50ML OF 50% DW IV FOR... UD PRN IV 07/09/17 03:45 08/08/17 03:44 Glucagon (Glucagon Inj) 1 mg UD PRN SQ 07/09/17 03:45 08/08/17 03:44 Miscellaneous Information (Consult Glycemic Management Pharmacy) 1 ea UD PRN N/A 07/09/17 12:45 08/08/17 12:44 Insulin Aspart (novoLOG ASPART) SLIDING SCALE [facility]S ID 07/09/17 21:00 08/08/17 20:59 Insulin Aspart (novoLOG ASPART) SLIDING SCALE TODAY@0000,0400 ID 07/10/17 00:00 07/10/17 04:01 Miscellaneous Information (Dc Iv Insulin Infusion) 1 ea TODAY@1930 ONCE N/A 07/09/17 19:30 07/09/17 19:31 Potassium Chloride (Klor-Con Tab) 60 meq ONE ONCE PO 07/09/17 19:15 07/09/17 19:16 I & O: 24-Hour Column 07/10/17 08:00 Intake Total 2664 ml Output Total 600 ml Balance 2064 ml Vital Signs: Date Time Temp Pulse Resp B/P (MAP) Pulse Ox O2 Delivery O2 Flow Rate FiO2 07/09/17 16:01 36.8 67 14 119/74 (89) 100 Room Air 07/09/17 16:00 96 Room Air 07/09/17 13:52 37.2 70 16 109/66 (80) 96 Room Air 07/09/17 13:00 68 13 109/66 (80) 99 07/09/17 12:00 37.1 67 16 113/59 (77) 98 Room Air 07/09/17 12:00 72 14 118/72 (87) 100 07/09/17 12:00 Room Air 07/09/17 11:00 68 15 113/59 (77) 100 07/09/17 10:00 80 17 121/74 (90) 100 07/09/17 09:51 72 21 122/57 (78) 100 07/09/17 09:30 37.0 77 15 122/57 (78) 100 Room Air 07/09/17 09:00 80 10 100 07/09/17 08:01 80 12 120/65 (83) 99 07/09/17 08:00 83 12 07/09/17 07:30 Room Air 07/09/17 07:30 36.9 76 14 118/63 (81) 100 Room Air 07/09/17 07:10 76 13 118/63 (81) 100 07/09/17 07:10 76 13 118/63 (81) 100 07/09/17 07:00 63 11 07/09/17 06:30 77 10 100 07/09/17 06:00 74 13 121/59 (79) 100 07/09/17 05:30 76 12 98 07/09/17 05:00 84 15 111/62 (78) 99 07/09/17 04:30 72 14 100 07/09/17 04:00 37.0 73 13 115/70 (85) 100 07/09/17 03:32 74 17 120/65 (83) 100 07/09/17 03:30 80 12 100 07/09/17 03:19 77 18 126/70 99 07/09/17 03:15 37.0 77 14 121/78 100 Room Air 07/09/17 01:39 76 16 125/73 100 Room Air 07/09/17 00:24 82 07/09/17 00:08 85 18 132/75 99 Room Air 07/08/17 22:52 36.4 116 20 126/92 99 Room Air Laboratory Results: Last 24 Hours Test 07/08/17 23:15 07/09/17 00:10 07/09/17 00:25 07/09/17 00:47 White Blood Count 6.83 K/uL Red Blood Count 5.93 M/uL Hemoglobin 18.4 g/dL Hematocrit 49.2 % Mean Corpuscular Volume 83.0 fL Mean Corpuscular Hemoglobin 31.0 pg Mean Corpuscular Hemoglobin Concent 37.4 g/dl Platelet Count 251 K/uL Mean Platelet Volume 9.1 fL Neutrophils (%) (Auto) 63.5 % Lymphocytes (%) (Auto) 24.5 % Monocytes (%) (Auto) 10.8 % Eosinophils (%) (Auto) 0.3 % Basophils (%) (Auto) 0.6 % Neutrophils # (Auto) 4.34 K/uL Lymphocytes # (Auto) 1.67 K/uL Monocytes # (Auto) 0.74 K/uL Eosinophils # (Auto) 0.02 K/uL Basophils # (Auto) 0.04 K/uL RDW Standard Deviation 38.7 fL RDW Coefficient of Variation 12.9 % Immature Granulocyte % (Auto) 0.3 % Immature Granulocyte # (Auto) 0.02 K/uL Sodium Level 131 mmol/L Potassium Level 3.8 mmol/L Chloride Level 101 mmol/L Carbon Dioxide Level 10 mmol/L Anion Gap 20.0 mmol/L Blood Urea Nitrogen 12 mg/dl Creatinine 1.43 mg/dl Est Creatinine Clear Calc Drug Dose 70.0 ml/min Estimated GFR () 80.6 Estimated GFR (Non- 69.5 BUN/Creatinine Ratio 8.7 Random Glucose 331 mg/dl Calcium Level 9.2 mg/dl Phosphorus Level 2.8 mg/dl Magnesium Level 2.3 mg/dl Total Bilirubin 0.9 mg/dl Direct Bilirubin 0.2 mg/dl Aspartate Amino Transf (AST/SGOT) 14 U/L Alanine Aminotransferase (ALT/SGPT) 24 U/L Alkaline Phosphatase 108 U/L Total Protein 9.2 gm/dl Albumin 4.8 gm/dl Lipase 62 U/L Beta-Hydroxybutyric Acid 97.58 mg/dL Venous Blood pH 7.16 Venous Blood Partial Pressure CO2 27 mmHg Venous Blood Partial Pressure O2 66 mmHg Venous Blood HCO3 9 mmol/L Venous Blood Oxygen Saturation 90.7 % Venous Blood Base Excess -17.8 mEq/L Bedside Glucose 316 mg/dl Bedside Lactic Acid Venous 1.22 mmol/L Test 07/09/17 01:58 07/09/17 02:56 07/09/17 04:02 07/09/17 04:06 Bedside Glucose 246 mg/dl 228 mg/dl 190 mg/dl White Blood Count 7.73 K/uL Red Blood Count 5.08 M/uL Hemoglobin 15.3 g/dL Hematocrit 42.4 % Mean Corpuscular Volume 83.5 fL Mean Corpuscular Hemoglobin 30.1 pg Mean Corpuscular Hemoglobin Concent 36.1 g/dl Platelet Count 212 K/uL Mean Platelet Volume 9.2 fL Neutrophils (%) (Auto) 60.0 % Lymphocytes (%) (Auto) 27.8 % Monocytes (%) (Auto) 11.6 % Eosinophils (%) (Auto) 0.1 % Basophils (%) (Auto) 0.4 % Neutrophils # (Auto) 4.63 K/uL Lymphocytes # (Auto) 2.15 K/uL Monocytes # (Auto) 0.90 K/uL Eosinophils # (Auto) 0.01 K/uL Basophils # (Auto) 0.03 K/uL RDW Standard Deviation 38.6 fL RDW Coefficient of Variation 12.9 % Immature Granulocyte % (Auto) 0.1 % Immature Granulocyte # (Auto) 0.01 K/uL Prothrombin Time 10.9 SECONDS Prothromb Time International Ratio 1.0 Venous Blood pH 7.24 Sodium Level 134 mmol/L Potassium Level 3.7 mmol/L Chloride Level 108 mmol/L Carbon Dioxide Level 11 mmol/L Anion Gap 15.0 mmol/L Blood Urea Nitrogen 11 mg/dl Creatinine 1.09 mg/dl Est Creatinine Clear Calc Drug Dose 93.1 ml/min Estimated GFR () 111.9 Estimated GFR (Non- 96.5 BUN/Creatinine Ratio 9.8 Random Glucose 208 mg/dl Calcium Level 7.9 mg/dl Phosphorus Level 1.6 mg/dl Magnesium Level 2.1 mg/dl Test 07/09/17 05:10 07/09/17 06:02 07/09/17 08:07 07/09/17 12:16 Bedside Glucose 173 mg/dl 167 mg/dl Venous Blood pH 7.25 7.28 Sodium Level 135 mmol/L 133 mmol/L Potassium Level 3.8 mmol/L 3.8 mmol/L Chloride Level 109 mmol/L 106 mmol/L Carbon Dioxide Level 12 mmol/L 14 mmol/L Anion Gap 14.0 mmol/L 13.0 mmol/L Blood Urea Nitrogen 9 mg/dl 9 mg/dl Creatinine 0.90 mg/dl 0.91 mg/dl Est Creatinine Clear Calc Drug Dose 149.4 ml/min 115.3 ml/min Estimated GFR () 141.0 139.1 Estimated GFR (Non- 121.7 120.0 BUN/Creatinine Ratio 10.5 9.4 Random Glucose 187 mg/dl 263 mg/dl Estimated Average Glucose 280 mg/dl Hemoglobin A1c 11.4 % Calcium Level 7.7 mg/dl 7.7 mg/dl Phosphorus Level 2.1 mg/dl 2.3 mg/dl Magnesium Level 2.2 mg/dl 2.1 mg/dl Test 07/09/17 15:01 07/09/17 16:12 07/09/17 17:08 Bedside Glucose 157 mg/dl 163 mg/dl Venous Blood pH 7.32 Sodium Level 134 mmol/L Potassium Level 3.0 mmol/L Chloride Level 107 mmol/L Carbon Dioxide Level 17 mmol/L Anion Gap 10.0 mmol/L Blood Urea Nitrogen 11 mg/dl Creatinine 0.91 mg/dl Est Creatinine Clear Calc Drug Dose 115.3 ml/min Estimated GFR () 139.1 Estimated GFR (Non- 120.0 BUN/Creatinine Ratio 11.8 Random Glucose 153 mg/dl Calcium Level 7.9 mg/dl Phosphorus Level 1.6 mg/dl Magnesium Level 2.1 mg/dl Resident Tracking Resident Involvement: Resident Care Provided Care Provided: Adult [facility] Medicine Problem Qualifiers (1) DKA (diabetic ketoacidoses): Diabetes mellitus type: other specified (including ANDRADE) Diabetes mellitus complication detail: without coma Qualified Codes: E13.10 - Other specified diabetes mellitus with ketoacidosis without coma
[2017-07-09] MEDS ORDERED: POTASSIUM CHLORIDE 20 MEQ TABCR PO ONE (19:15)
[2017-07-09] MEDS ORDERED: DC IV INSULIN INFUSION ONE (19:30)
[2017-07-09 20:59] LABS: CALCIUM 8.2 mg/dl (8.5-10.1); CREATININE 0.98 mg/dl (0.60-1.40); PHOSPHORUS 2.1 mg/dl (2.5-4.9); POTASSIUM 3.1 mmol/L (3.5-5.1)
[2017-07-09] MEDS ORDERED: POTASSIUM CHLORIDE 20 MEQ TABCR PO STA (21:39)
[2017-07-10] VITALS (8 sets, daily range): BP systolic 100–125; BP diastolic 64–76; PULSE 62–82; TEMP 36.3–36.8; O2SAT 95–100; BMI 19.4
[2017-07-10 00:25] LABS: CALCIUM 7.9 mg/dl (8.5-10.1); CREATININE 0.88 mg/dl (0.60-1.40); POTASSIUM 3.4 mmol/L (3.5-5.1)
[2017-07-10] MEDS ORDERED: POTASSIUM CHLORIDE 20 MEQ TABCR PO STA (00:37)
[2017-07-10 00:42] LABS: PHOSPHORUS 1.5 mg/dl (2.5-4.9)
[2017-07-10] MEDS ORDERED: NURSING VERBAL MED ORDER ONE ×2 (01:00→13:30)
[2017-07-10] MEDS ORDERED: POT PHOSPHATE MONOBASIC W/ SOD TAB PO ONE (01:00)
[2017-07-10] MEDS: INSULIN ASPART 100 UNITS/ML 3 ML PEN SC SCH ×6 (03:57→21:00)
[2017-07-10] MEDS: POT PHOSPHATE MONOBASIC W/ SOD TAB PO SCH ×4 (07:57→21:18)
[2017-07-10] MEDS: HEPARIN SOD 5000 UNIT/0.5 ML CARP SQ SCH ×2 (07:59→21:00)
[2017-07-10] MEDS ORDERED: INSULIN GLARGINE SOLOSTAR 100 UNITS/ML 3 ML PEN SC ONE (09:30)
--- NOTE | 2017-07-10 09:35 | Pharmacy Progress Note ---
Glycemic Control Progress Note Date of Service Jul 10, 2017. Scope Glycemic Pharmacist consulted for glycemic control to write orders per [facility] inpatient glycemic control protocol. Objective Accuchecks BSG (last 24hrs): Test 07/09/17 10:05 07/09/17 11:06 07/09/17 11:56 07/09/17 12:16 Bedside Glucose 239 mg/dl (70-99) 251 mg/dl (70-99) 263 mg/dl (70-99) Random Glucose 263 mg/dl (70-99) Test 07/09/17 13:16 07/09/17 14:06 07/09/17 15:01 07/09/17 16:05 Bedside Glucose 252 mg/dl (70-99) 213 mg/dl (70-99) 157 mg/dl (70-99) 138 mg/dl (70-99) Test 07/09/17 16:12 07/09/17 17:08 07/09/17 18:06 07/09/17 19:05 Random Glucose 153 mg/dl (70-99) Bedside Glucose 163 mg/dl (70-99) 173 mg/dl (70-99) 139 mg/dl (70-99) Test 07/09/17 20:19 07/09/17 21:07 07/09/17 23:52 07/09/17 23:53 Random Glucose 135 mg/dl (70-99) 172 mg/dl (70-99) Bedside Glucose 136 mg/dl (70-99) 175 mg/dl (70-99) Test 07/10/17 03:56 Bedside Glucose 142 mg/dl (70-99) HbA1c: Test 07/09/17 08:07 Hemoglobin A1c 11.4 % (4.5-5.6) H Recent Pertinent Medications Outpatient Anti-diabetic Regimen: * None The patient is currently receiving: * Basal insulin with LANTUS 20 units SQ x1 * Correctional Insulin with NOVOLOG per scale ACHS with 2 overnight checks * Goal Range: Low 120 mg/dL - High 150 mg/dL * Correction Factor: 40 mg/dL/unit * Nutritional / Prandial insulin per carb ratio of 1 unit per 13 grams CHO consumed Outpatient Anti-Diabetic Meds None Assessment & Plan ASSESSMENT: 07/09/17 * 22 yo M admitted to ICU with DKA and new diagnosis of diabetes * Patient has been on an insulin drip since 07/08 @ ~ 0000 * Anion gap, CO2 and pH are trending nicely - anticipate that 1600 labs will demonstrate correction of acidosis enough to transition off drip. OK to start transition off drip now per discussion w Dr. Mckeon * Insulin drip was running at 1.0 units/hr most of the day, but has recently increased 2nd patient consumption of CHO. Will give Lantus at slightly less than total daily dose for 1.0 unit/hr rate (this is ~ 0.3 units/kg which may be more than the patient will require as maintenance dose but OK to give now) * Will stop insulin drip 6 hours after administration of Lantus, or sooner if the drip turns itself off * Will initiate weight based Novolog at slightly looser than weight-based moderate stress dosing 07/10/17 * BSG's trending nicely since transition yesterday, ranging 137-175 mg/dL * BSG at 0400 within range at 142 mg/dL - spoke w RN - stable at 142 mg/dL at ~ 0645 when repeat BSG obtained * Anticipate insulin sensitivity to increase with resolution of DKA. Therefore despite BSG's stable and in range this AM, will decrease Lantus slightly * OK to decrease goal range now that have multiple blood sugars demonstrating patient response to insulin * Post-prandial BSG's are mildly elevated - will slightly tighten CHO ratio * OK to decrease overnight checks from 2 to 1 PLAN FOR INPATIENT GLYCEMIC CONTROL: * Decrease Basal insulin with LANTUS 15 units SQ x1 this AM then qAM based on BSG * 10 units for BSG less than 90 mg/dL * 12 units for BSG 90-109 mg/dL * 15 units for BSG 110-140 mg/dL * 18 units for BSG greater than 140 mg/dL * Correctional Insulin with NOVOLOG per scale ACHS with 1 overnight check * Decrease Goal Range: Low 110 mg/dL - High 140 mg/dL * Correction Factor: 40 mg/dL/unit * Tighten Nutritional / Prandial insulin per carb ratio of 1 unit per 12 grams CHO consumed * Please note that the plan above was derived based on current level of insulin resistance and hospital stress. These recommendations are appropriate for inpatient admission only. Plan of care upon discharge will need to be reassessed to avoid potential outpatient hypo/hyperglycemia. Thank you.
[2017-07-10] MEDS ORDERED: POTASSIUM CHLORIDE 10 MEQ TABCR PO STA (12:59)
[2017-07-10] MEDS ORDERED: MAGNESIUM SULFATE 1GM / D5W 1 GM in PREMIXED IN D5W 100 ML IV ONE (13:15)
--- NOTE | 2017-07-10 15:09 | Progress Note ---
Subjective Date of Service: Jul 10, 2017. Subjective Pt evaluation today including: conversation w/ patient, conversation w/ family , physical exam, chart review, lab review, review of studies, review of inpatient medication list Sitting in chair, tolerate diet, no complaint, no nausea or vomiting, no abdominal pain, no diarrhea constipation, denies fever and chills Problem List Medical Problems: (1) Dehydration Status: Acute (2) Newly diagnosed diabetes Status: Acute (3) Vomiting Status: Acute Review of Systems Constitutional: No fever, No chills, No sweats, No weight loss, No weakness, No fatigue, No problem reported Eyes: No worsening of vision, No eye pain, No redness, No discharge, No diplopia ENT: No hearing loss, No unusual epistaxis, No nasal symptoms, No sore throat, No tinnitus, No dental problems, No trouble swallowing Respiratory: No cough, No sputum, No wheezing, No shortness of breath, No dyspnea on exertion, No dyspnea at rest, No hemoptysis Cardiac: No chest pain, No orthopnea, No PND, No edema, No claudication, No palpitations Abdomen: No pain, No nausea, No vomiting, No diarrhea, No constipation Musculoskeletal: No joint pain, No muscle pain, No swelling, No calf pain Male : No dysuria, No urinary frequency, No incontinence, No nocturia more than once/night, No slowing stream, No hematuria Neurologic: No memory loss, No paralysis, No weakness, No numbness/tingling, No vertigo, No balance problems Psychiatric: No depression symptoms, No anhedonism, No anxiety, No insomnia, No substance abuse Heme: No abnormal bleeding/bruising, No clotting problems, No swollen lymph nodes, No night sweats Endo: No fatigue, No excessive thirst, No excessive urination Skin: No rash, No itch, No new/changing skin lesions, No color change, No bleeding Objective Vital Signs Date Time Temp Pulse Resp B/P (MAP) Pulse Ox O2 Delivery O2 Flow Rate FiO2 07/10/17 12:00 98 Room Air 07/10/17 12:00 36.7 72 14 110/73 (85) 99 Room Air 07/10/17 08:00 Room Air 07/10/17 08:00 36.6 66 18 100/73 (82) 99 Room Air 07/10/17 04:00 Room Air 07/10/17 03:55 36.4 64 16 106/73 (84) 95 Room Air 07/10/17 02:00 65 17 Room Air 07/10/17 00:01 Room Air 07/09/17 23:10 37.0 70 16 118/69 (85) 98 Room Air 07/09/17 22:00 75 16 98 07/09/17 20:00 96 Room Air 07/09/17 19:01 36.8 65 15 117/63 (81) 99 Room Air 07/09/17 18:00 70 16 100 07/09/17 16:01 36.8 67 14 119/74 (89) 100 Room Air 07/09/17 16:00 96 Room Air Physical Exam General Appearance: WD/WN, no apparent distress, + thin Eyes: normal inspection, PERRL, EOMI, sclerae normal ENT: normal ENT inspection, hearing grossly normal, pharynx normal Neck: supple, no adenopathy, thyroid normal, no JVD, no carotid bruits, trachea midline Respiratory/Chest: chest non-tender, lungs clear, normal breath sounds, no respiratory distress, no accessory muscle use Cardiovascular: regular rate, rhythm, no edema, no gallop, no JVD, no murmur Abdomen: normal bowel sounds, non tender, soft, no organomegaly, no pulsatile mass Extremities: normal range of motion, non-tender, normal inspection, no pedal edema, no calf tenderness, normal capillary refill, pelvis stable Neurologic/Psychiatric: miller head II-XII nml as tested, no motor/sensory deficits, alert, normal mood/affect, oriented x 3 Skin: normal color, warm/dry, no rash Lymphatic: no adenopathy Laboratory Results Last 24 Hours Test 07/09/17 16:05 07/09/17 16:12 07/09/17 17:08 07/09/17 18:00 Bedside Glucose 138 mg/dl 163 mg/dl Venous Blood pH 7.32 Sodium Level 134 mmol/L Potassium Level 3.0 mmol/L Chloride Level 107 mmol/L Carbon Dioxide Level 17 mmol/L Anion Gap 10.0 mmol/L Blood Urea Nitrogen 11 mg/dl Creatinine 0.91 mg/dl Est Creatinine Clear Calc Drug Dose 115.3 ml/min Estimated GFR () 139.1 Estimated GFR (Non- 120.0 BUN/Creatinine Ratio 11.8 Random Glucose 153 mg/dl Calcium Level 7.9 mg/dl Phosphorus Level 1.6 mg/dl Magnesium Level 2.1 mg/dl Urine Color YELLOW Urine Appearance CLOUDY Urine pH 5.5 Urine Specific [place] 1.018 Urine Protein NEG Urine Glucose (UA) 3+ Urine Ketones 3+ Urine Occult Blood NEG Urine Nitrite NEG Urine Bilirubin NEG Urine Urobilinogen NEG Urine Leukocyte Esterase NEG Urine WBC (Auto) 1-5 /hpf Urine RBC (Auto) 0-4 /hpf Urine Hyaline Casts (Auto) 1-5 /lpf Urine Epithelial Cells (Auto) 20-30 /lpf Urine Bacteria (Auto) NEG Test 07/09/17 18:06 07/09/17 19:05 07/09/17 20:19 07/09/17 21:07 Bedside Glucose 173 mg/dl 139 mg/dl 136 mg/dl Venous Blood pH 7.35 Sodium Level 135 mmol/L Potassium Level 3.1 mmol/L Chloride Level 105 mmol/L Carbon Dioxide Level 21 mmol/L Anion Gap 9.0 mmol/L Blood Urea Nitrogen 12 mg/dl Creatinine 0.98 mg/dl Est Creatinine Clear Calc Drug Dose 107.1 ml/min Estimated GFR () 127.2 Estimated GFR (Non- 109.8 BUN/Creatinine Ratio 12.5 Random Glucose 135 mg/dl Calcium Level 8.2 mg/dl Phosphorus Level 2.1 mg/dl Magnesium Level 2.1 mg/dl Test 07/09/17 23:52 07/09/17 23:53 07/10/17 03:56 07/10/17 11:27 Bedside Glucose 175 mg/dl 142 mg/dl 181 mg/dl Venous Blood pH 7.38 Sodium Level 136 mmol/L Potassium Level 3.4 mmol/L Chloride Level 105 mmol/L Carbon Dioxide Level 24 mmol/L Anion Gap 7.0 mmol/L Blood Urea Nitrogen 11 mg/dl Creatinine 0.88 mg/dl Est Creatinine Clear Calc Drug Dose 119.3 ml/min Estimated GFR () 142.3 Estimated GFR (Non- 122.8 BUN/Creatinine Ratio 12.4 Random Glucose 172 mg/dl Calcium Level 7.9 mg/dl Phosphorus Level 1.5 mg/dl Magnesium Level 2.1 mg/dl Assessment and Plan 22 y/o M who admitted on July 09, 2017 because of DKA and hyperglycemia New diagnosed diabetic, Uncontrolled diabetic DKA Hyperglycemia denies a significant medical history Improvement stable, anion gap closed, switch to subcu insulin, start clear liquid diet A lot of medications from housing case manager, neighborhood planner, nursing staff for the new diagnosis of diabetic Discussed with parents and patient about conditions and care plan, recommend follow-up with endocrinology and PCP Document of neighborhood planner PCP no RECOMMENDATIONS POST-DISCHARGE: 1. Basaglar once daily and Novolog carb:insulin ratio + CF. 2. A1c > 9% and new diagnosis - follow-up with provider within next 1-2 weeks. PRESCRIPTIONS NEEDED: 1. Basaglar Kwikpen. 2. Novolog Flexpen. 3. BD Melissa insulin pen needles (90ct) x 2/month. 4. OneTouch Verio test strips to test up to 6x/day. 5. OneTouch Delica lancets to test up to 6x/day. Planning to MedSurg, and discharge tomorrow, Full code - Heparin prophylaxis Continued [facility] stay due to: home environment unsafe for pt Discharge planning: home
[2017-07-10] MEDS: MAGNESIUM OXIDE 400 MG TAB PO SCH (21:27)
--- NOTE | 2017-07-10 23:56 | Progress Note ---
Post ICU Progress Note Date & Time Jul 10, 2017 at 23:49 Vital Signs Vital Signs Past 12 Hours Date Time Temp Pulse Resp B/P (MAP) Pulse Ox O2 Delivery O2 Flow Rate FiO2 07/10/17 23:36 36.6 62 20 125/67 (86) 97 Room Air 07/10/17 19:57 36.8 82 18 111/72 (85) 98 Room Air 07/10/17 19:14 36.3 70 12 125/76 (92) 100 Room Air 07/10/17 19:12 Room Air 07/10/17 16:00 Room Air 07/10/17 15:28 36.8 78 20 118/64 (82) 97 Room Air 07/10/17 12:00 98 Room Air 07/10/17 12:00 36.7 72 14 110/73 (85) 99 Room Air Notes Mental Status: alert / awake, participated in evaluation Nausea / Vomiting: adequately controlled Pain: adequately controlled Airway Patency, RR, SpO2: stable & adequate BP & HR: stable & adequate 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 Pt underwent appropriate DKA treatment which resolved by the second day of admission. Pt had been seen by nurses educator and has prescriptions for discharge. He has been encouraged to follow up with his PCP for DM management. Pt does state that for the next couple weeks this will be difficult as he is from the [facility]. He feels that he understands his new regimen and both parents are supportive to assist. He was downgraded to telemetry status the day following admission. He did not require intubation or invasive monitoring while in the unit. Pt has no complaints upon my evaluation this evening. Physical exam is unchanged. Pt states he would like to be discharged tomorrow; which he feels is a likely possibility after discussion with the hospitalist team. Pt is stable. Consider outpatient follow up in 1 to 2 weeks with: PCP Repeat imaging needed: None Follow up cultures: NA Reviewed progress notes, labs, and inpatient medication list Continue current management Additional recommendations: Monitor BSG closely, Follow recommended DM diet upon discharge Pt has stabilized. Critical Care will sign off at this time. Thank you for including us in the care this pt. Please feel free to reconsult as needed. Consults & Procedures Consultants: Software Development Engineer
[2017-07-11] MEDS ORDERED: INSULIN ASPART 100 UNITS/ML 3 ML PEN SC SCH (02:00)
[2017-07-11 04:34] VITALS: BP 104/67; PULSE 76; TEMP 36.5; O2SAT 98
[2017-07-11 07:17] LABS: BLOOD UREA NITROGEN 10 mg/dl (7-18); CALCIUM 8.7 mg/dl (8.5-10.1); CARBON DIOXIDE 30 mmol/L (21-32); CREATININE 0.58 mg/dl (0.60-1.40); GLUCOSE 158 mg/dl (70-99); POTASSIUM 2.8 mmol/L (3.5-5.1); SODIUM 137 mmol/L (136-145)
[2017-07-11] MEDS: INSULIN ASPART 100 UNITS/ML 3 ML PEN SC SCH ×2 (08:10→12:28)
[2017-07-11 08:15] VITALS: BP 112/70; PULSE 82; TEMP 36.3; O2SAT 97
[2017-07-11] MEDS ORDERED: POTASSIUM CHLORIDE 10 MEQ TABCR PO ONE (08:15)
[2017-07-11] MEDS ORDERED: INSULIN GLARGINE SOLOSTAR 100 UNITS/ML 3 ML PEN SC SCH (09:00)
[2017-07-11] MEDS: HEPARIN SOD 5000 UNIT/0.5 ML CARP SQ SCH (09:00)
[2017-07-11] MEDS: MAGNESIUM OXIDE 400 MG TAB PO SCH (09:16)
[2017-07-11] MEDS: POTASSIUM CHLR 10 MEQ / WTR 10 MEQ in PREMIXED WATER 100 ML IV SCH ×2 (09:16→10:23)
[2017-07-11] MEDS ORDERED: POLYETHYLENE (MIRALAX) 17 GM PACK PO PRN (11:15)
[2017-07-11 11:56] VITALS: BP 115/72; PULSE 75; TEMP 36.5; O2SAT 98
[2017-07-11] MEDS ORDERED: MRLP17X PO (12:21)
[2017-07-11] MEDS ORDERED: INSU32MI13 SQ (12:21)
[2017-07-11] MEDS ORDERED: NVLGIPEN SC (12:21)
[2017-07-11] MEDS ORDERED: INSU100I23 SQ ×2 (12:21→14:40)
--- NOTE | 2017-07-11 12:24 | Discharge Instructions ---
Discharge Instructions Date of Service Jul 11, 2017. Admission Reason for Admission: DKA Discharge Discharge Diagnosis / Problem: DKA Discharge Goals Goal(s): Decrease discomfort, Improve function, Increase independence, Improve disease control, Improve nutritional status, Learn about illness, Diagnostic testing, Therapeutic intervention, Prevent Disease Progression, Specific goals Activity Recommendations Activity Limitations: resume your previous activity . Instructions / Follow-Up Instructions / Follow-Up you have New diagnosed diabetic, you have Uncontrolled diabetic you have DKA Rx upon discharge includes: 1. Basaglar Kwikpen. 2. Novolog Flexpen. 3. BD Melissa insulin pen needles (90ct) x 2/month. 4. OneTouch Verio test strips to test up to 6x/day. 5. OneTouch Delica lancets to test up to 6x/day. Novolog Flexpen. use as instructed per sliding scale BG<150 no coverage, BG 151 to 180: 2 unit BG 181 to 200: 4 unit BG 201 to 220: 5 unit BG 221 to 240: 6 unit BG 241 to 260: 7 unit BG 261 to 280: 8 unit BG 281 to 300: 9 unit BG 301 to 320: 10 unit BG 321 to 340: 12 unit BG 341 to 360: 14 unit BG 361 to 380: 16 unit BG >380: 18 unit, and call PCP - you need to follow up with your primary care physician in 1 week, need to be see in form drafter in 2-3 weeks - take medication as instructed, never overdose or any misuse, or take with alcohol, because misuse of medicine may cause organ damage or , call your primary care physician if have questions of medicaitons. - call your primary care physician OR go to local emergency room if has any fever/chill, chest pain, shortness of breathing, nausea/vomiting/abdominal pain , facial droop/slurry speech/local weakness, or if has any questions. - diet as instructed - you need to follow up with your subspecialist Current Hospital Diet Patient's current hospital diet: Diabetes Type 1 Diet Discharge Diet Recommended Diet: Diabetes Type 1 Diet Pending Studies Studies pending at discharge: no Laboratory Results Hemoglobin A1c Test 07/09/17 08:07 Range/Units Estimated Average Glucose 280 mg/dl Hemoglobin A1c 11.4 H 4.5-5.6 % Medical Emergencies . Who to Call and When: Medical Emergencies: If at any time you feel your situation is an emergency, please call 911 immediately. . Non-Emergent Contact Non-Emergency issues call your: Primary Care Provider, Specialist (endo) . . "Provider Documentation" section prepared by Tyree Seay. .
--- NOTE | 2017-07-11 12:39 | Pharmacy Progress Note ---
Pharmacy Glycemic Short Note 2 Date of Service Jul 11, 2017. OUTPATIENT ANTIDIABETIC REGIMEN: * None - new onset T1DM * HbA1c 11.4 % (07/09/17) ASSESSMENT: * 22 yr old male admitted with DKA and new diagnosis of diabetes * Patient was transitioned off IV insulin infusion on 07/09 PM. He received 26 units of insulin over the past 24 hours: * 15 units of basal insulin * 11 units of bolus insulin * BSGs: 142 (fasting), 181, 159, 132 * Fasting BSG above goal this morning, however, I anticipate improvement one basal insulin is at steady state * Post-prandial BSGs near goal - will slightly tighten CF/CR PLAN FOR INPATIENT GLYCEMIC CONTROL: * Basal insulin * Lantus 15-18 units SQ qAM * 18 units for BSG > 100 mg/dL * Bolus insulin - tighten * NovoLog per scale ACHS or Q6hrs while NPO * Goal Range: Low 110 mg/dL - High 140 mg/dL * Correction Factor: 32 mg/dL/unit * Nutritional / Prandial insulin per carb ratio of 1 unit per 11 grams CHO consumed PLAN FOR DISCHARGE: HbA1c of 11.4 % indicates diagnosis of diabetes Recommend discharge on the following regimen: * Insulin Basaglar 15 units SQ daily in the morning * Short acting insulin (aspart, apidra, or humalog) SQ three times daily with meals * goal BSG range: 100 - 140 mg/dL * correction factor of 40 (administer 1 unit of insulin for every 40 mg/dL above goal) * carbohydrate ratio of 1 unit for every 12 grams carbohydrate consumed * Follow up with PCP within 1-2 weeks Thank you.
[2017-07-11 13:39] VITALS: BP 115/72; PULSE 75; TEMP 36.5; O2SAT 98
--- NOTE | 2017-07-11 14:11 | Discharge Summary ---
Discharge Summary Date of Service Jul 11, 2017. Discharge Summary Admission Date: Jul 09, 2017 at 02:11 Discharge Date: Jul 11, 2017 Discharge Disposition: Home Principal Diagnosis: DKA Problems/Secondary Diagnoses: new diagnosed diabetic possible type I diabetic Procedures: No Consultations: No Medication Reconciliation New Medications: Insulin Glargine (Basaglar Kwikpen) 100 Unit/Ml Inj 18 UNIT SQ DAILY for 30 Days Insulin Pen Needle (Bd Pen Needle/Melissa/Ultra) 1 Mis Mis EA SQ DAILY, #90 Insulin Aspart (Novolog Flexpen) 100 Units/Ml Inj 1 UNITS SC ACHS for 30 Days, #1 use as instructed per sliding scale BG<150 no coverage, BG 151 to 180: 2 unit BG 181 to 200: 4 unit BG 201 to 220: 5 unit BG 221 to 240: 6 unit BG 241 to 260: 7 unit BG 261 to 280: 8 unit BG 281 to 300: 9 unit BG 301 to 320: 10 unit BG 321 to 340: 12 unit BG 341 to 360: 14 unit BG 361 to 380: 16 unit BG >380: 18 unit, and call PCP Polyethylene (Miralax) 17 Gm Pow 17 GM PO DAILY PRN for Constipation for 7 Days Continued Medications: Multivitamin (Multivitamin) Tab 1 TAB PO DAILY, TAB Ondansetron Hcl (Zofran) 4 Mg Tab 4 MG PO DIRECTED PRN for Nausea, TAB Discharge Exam Doing well, no complaint, has no bowel movement since admission, however patient does not feel it is a problem Review of Systems: Constitutional: No fever, No chills, No sweats, No weight loss, No weakness , No fatigue, No problem reported Eyes: No worsening of vision, No eye pain, No redness, No discharge, No diplopia, No problem reported ENT: No hearing loss, No unusual epistaxis, No nasal symptoms, No sore throat, No tinnitus, No dental problems, No trouble swallowing, No problem reported Respiratory: No cough, No sputum, No wheezing, No shortness of breath, No dyspnea on exertion, No dyspnea at rest, No hemoptysis, No problem reported Cardiovascular: No chest pain, No orthopnea, No PND, No edema, No claudication, No palpitations, No problem reported Abdomen: No pain, No nausea, No vomiting, No diarrhea, No constipation, No GI bleeding, No problem reported Musculoskeletal: No joint pain, No muscle pain, No swelling, No calf pain, No problem reported Genitourinary - Male: No hematuria, No dysuria, No urinary frequency, No urinary urgency, No urinary hesitancy, No urinary retention, No urinary incontinence, No penile discharge, No lesions, No impotence, No problem reported Neurologic: No memory loss, No paralysis, No weakness, No numbness/tingling , No vertigo, No balance problems, No problem reported Endocrine: No fatigue, No excessive thirst, No excessive urination, No problem reported Hematologic / Lymphatic: No abnormal bleeding/bruising, No clotting problems , No swollen lymph nodes, No night sweats, No problem reported Integumentary: No rash, No itch, No new/changing skin lesions, No color change, No bleeding, No problem reported Physical Exam: General Appearance: WD/WN, no apparent distress Eyes: normal inspection, PERRL ENT: normal ENT inspection, hearing grossly normal, TMs normal Neck: supple, no adenopathy, thyroid normal Respiratory/Chest: chest non-tender, lungs clear, normal breath sounds, no respiratory distress, no accessory muscle use Cardiovascular: regular rate, rhythm, no edema, no gallop, no JVD, no murmur Abdomen / GI: normal bowel sounds, non tender, soft, no organomegaly, no pulsatile mass Extremities: normal inspection, no calf tenderness, normal capillary refill Neurologic/Psychiatric: community living coach II-XII nml as tested, no motor/sensory deficits , alert, normal mood/affect Skin: normal color, warm/dry, no rash Lymphatic: no adenopathy Hospital Course 22 y/o M who admitted on July 09, 2017 because of DKA and hyperglycemia New diagnosed diabetic, Uncontrolled diabetic DKA Hyperglycemia denies a significant medical history Improvement stable, anion gap closed, switch to subcu insulin, start clear liquid diet which has been advised to type I diabetic Discussed above medications from manager rn case, blow mold technician, nursing staff for the new diagnosis of diabetic Discussed with parents and patient about conditions and care plan, recommend follow-up with endocrinology and PCP Document of blow mold technician PCP no RECOMMENDATIONS POST-DISCHARGE: 1. Basaglar once daily and Novolog carb:insulin ratio + CF. 2. A1c > 9% and new diagnosis - follow-up with provider within next 1-2 weeks. PRESCRIPTIONS NEEDED: 1. Basaglar Kwikpen. 2. Novolog Flexpen. 3. BD Melissa insulin pen needles (90ct) x 2/month. 4. OneTouch Verio test strips to test up to 6x/day. 5. OneTouch Delica lancets to test up to 6x/day. Currently patient is on Lantus 18 units daily, will continue, has discussed with patient about sliding scale and carb coverage Encourage her to keep her appointment with community PCP and music mixer Has hypokalemia today, potassium 2.8, which was replaced, was planned to repeat at 4 PM, which was moved to 2 PM because patient and family is eager to be discharged sooner Patient will be discharged home if potassium level improved Full code - Heparin prophylaxis Instructions / Follow-Up you have New diagnosed diabetic, you have Uncontrolled diabetic you have DKA Rx upon discharge includes: 1. Basaglar Kwikpen. 2. Novolog Flexpen. 3. BD Melissa insulin pen needles (90ct) x 2/month. 4. OneTouch Verio test strips to test up to 6x/day. 5. OneTouch Delica lancets to test up to 6x/day. Novolog Flexpen. use as instructed per sliding scale BG<150 no coverage, BG 151 to 180: 2 unit BG 181 to 200: 4 unit BG 201 to 220: 5 unit BG 221 to 240: 6 unit BG 241 to 260: 7 unit BG 261 to 280: 8 unit BG 281 to 300: 9 unit BG 301 to 320: 10 unit BG 321 to 340: 12 unit BG 341 to 360: 14 unit BG 361 to 380: 16 unit BG >380: 18 unit, and call PCP - you need to follow up with your primary care physician in 1 week, need to be see in music mixer in 2-3 weeks - take medication as instructed, never overdose or any misuse, or take with alcohol, because misuse of medicine may cause organ damage or , call your primary care physician if have questions of medicaitons. - call your primary care physician OR go to local emergency room if has any fever/chill, chest pain, shortness of breathing, nausea/vomiting/abdominal pain , facial droop/slurry speech/local weakness, or if has any questions. - diet as instructed - you need to follow up with your subspecialist Total Time Spent: Greater than 30 minutes This includes examination of the patient, discharge planning, medication reconciliation, and communication with other providers. Discharge Instructions Please refer to the electronic Patient Visit Report (Discharge Instructions) for additional information. Additional Copies To [facility]
[2017-07-11 14:46] VITALS: Ht 177.8 cm; Wt 62.1 kg
[2017-07-11 15:03] LABS: CREATININE 0.78 mg/dl (0.60-1.40)
[2017-07-11 15:04] LABS: CALCIUM 9.1 mg/dl (8.5-10.1); POTASSIUM 3.5 mmol/L (3.5-5.1)
== END 2017-07-11 15:40 | disposition home or self-care (01) | DRG 638 ==
LOC: C.EDB 22:42 → C.MSICU 07-09 02:11 → ENRESERV 07-09 02:39 → C.MSICU 07-09 03:20 → ENRESERV 07-10 19:28 → C.MED 07-10 19:55
PROVIDERS: ADMIT Internal Medicine; ATTEND Hospitalist
DX: E10.10 Type 1 diabetes mellitus with ketoacidosis without coma (principal); N17.9 Acute kidney failure, unspecified; E87.6 Hypokalemia; E86.0 Dehydration; J45.909 Unspecified asthma, uncomplicated; Z51.81 Encounter for therapeutic drug level monitoring; Z83.3 Family history of diabetes mellitus